=== PATIENT | female | born 1980 | race Caucasian/White ===

== ENCOUNTER 2020-02-25 11:10 | Day surgery (SDC) | payer BC ==
[2020-02-25] MEDS ORDERED: LIDOcaine 2% 5ml jelly ONE (11:41)
== END 2020-02-25 12:25 | disposition home or self-care (01) ==
LOC: WOUND CARE 11:10
PROVIDERS: ATTEND Nurse Practitioner
DX: T81.89XA Other complications of procedures, not elsewhere classified, initial encounter (principal); J45.909 Unspecified asthma, uncomplicated; L97.511 Non-pressure chronic ulcer of other part of right foot limited to breakdown of skin; M67.471 Ganglion, right ankle and foot; Z90.49 Acquired absence of other specified parts of digestive tract; Z90.710 Acquired absence of both cervix and uterus; Y92.238 Other place in hospital as the place of occurrence of the external cause; Y83.8 Other surgical procedures as the cause of abnormal reaction of the patient, or of later complication, without mention of misadventure at the time of the procedure
CPT/HCPCS: 73630; 97597; G0463

== ENCOUNTER 2020-03-05 08:17 | Outpatient (CLI) | payer BC | END 2020-03-05 09:30 | disposition home or self-care (01) | LOC: WOUND CARE 08:17 → EDSTATUS 08:20 → WOUND CARE 09:30 | PROVIDERS: ATTEND Nurse Practitioner | DX: T81.89XD Other complications of procedures, not elsewhere classified, subsequent encounter (principal); L97.511 Non-pressure chronic ulcer of other part of right foot limited to breakdown of skin; J45.909 Unspecified asthma, uncomplicated; M67.471 Ganglion, right ankle and foot; Z90.49 Acquired absence of other specified parts of digestive tract; Z90.710 Acquired absence of both cervix and uterus; Y83.8 Other surgical procedures as the cause of abnormal reaction of the patient, or of later complication, without mention of misadventure at the time of the procedure | CPT/HCPCS: 82948; G0463 ==